=== PATIENT | male | born 1950 | race Caucasian/White ===

== ENCOUNTER 2016-07-26 14:04 | Inpatient (IN) | payer MEDICARE, OTHER ==
[~2016-07-26] VITALS: Ht 160 cm; Wt 82.9 kg
[2016-07-29] MEDS ORDERED: LISI-515 PO (09:01)
[2016-07-29] MEDS ORDERED: DOXA4TAB3 PO (09:01)
[2016-07-29] MEDS ORDERED: HYDR50TA3 PO (09:01)
[2016-07-29] MEDS ORDERED: METF500T PO (09:01)
[2016-07-29] MEDS ORDERED: GLYB2.5T3 PO (09:02)
[2016-07-29] MEDS ORDERED: CALC1CHW35 CHEW (09:27)
--- NOTE | 2016-08-08 09:19 | MH ---
cc: YISEL GARNER M.D. 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 HISTORY OF PRESENT ILLNESS The patient is a 65-year-old white male who has experienced pain of the right hip area of almost 1 year duration. He had undergone previous office evaluation with the undersigned physician in November of this past year, at which time he was describing the onset of generalized pain about his right hip unrelated to injury or unusual activity. He had undergone previous evaluation with his primary care physician at which time x-ray studies of the right hip reported findings that were thought to be consistent with avascular necrosis of the right femoral head and possible subchondral fracture. 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 The patient reported that in his past he had been a heavy ethanol consumer many years ago but for the past 30 years he had refrained from any excessive alcohol intake. He otherwise described no precipitating factors that might be associated with an avascular condition. There was no history of steroid use, no exposure to increased atmospheric pressure, no known blood dyscrasia and no prior history of trauma involving the hip area. He did report that in approximately 1996 he was diagnosed as having subdural hematomas secondary to blunt trauma that did require two operative procedures. At the time of his office evaluation his findings did demonstrate some cortical irregularity about the femoral head with increased density that was thought to be consistent with avascular necrosis. Findings and treatment options were reviewed with the patient at that time. It was noted that it was anticipated that at some point in his future he might require operative intervention in the form of total hip arthroplasty with emphasis being made that the timing of the surgery would be left entirely to the patient's discretion. Initially the patient did not feel that he was ready to proceed with such treatment and elected to continue with conservative management taking Tylenol on an as-needed basis. With the passage of time he became increasingly more symptomatic with pain that began to interfere with all ambulatory activities. He returned to the office in the more recent past reporting that he was having ongoing pain especially involving the right hip area. His more current x-ray studies did demonstrate obvious irregularity involving the femoral head with what appeared to be centralized collapse involving a localized segment of the articular surface of the femoral head superiorly. Findings and treatment options were reviewed again with emphasis being made that operative treatment would be left entirely to the patient's discretion. He readily admitted that he felt his symptoms had progressed to a point in time where he was eager to pursue such treatment and in compliance with his wishes he is currently being admitted in order that the above be accomplished. PAST MEDICAL HISTORY His past medical history, hospitalizations and surgeries in addition to: 1. Two operative procedures of the head area for history of subdural hematoma. 2. Anterior cervical diskectomy and fusion. 3. At least three operative procedures of the left shoulder for history of rotator cuff problems with complication including a postoperative staph infection. 4. He has undergone previous radiation therapy for prostate cancer with radium seed implants. 5. Laparoscopic cholecystectomy. 6. Bilateral cataract excision with intraocular lens implants. 7. Colonoscopy. MEDICAL ILLNESSES The patient's medical illnesses include: 1. Hypertension. 2. Type 2 diabetes for which he conforms to a monitored diet. MEDICATIONS Current medications: 1. Lisinopril 20 mg one tablet three times daily. 2. Hydrochloride 50 mg daily. 3. Doxazosin 4 mg daily. 4. Metformin 500 mg daily. 5. Glyburide 2.5 mg at dinner time. ALLERGIES The patient describes a drug allergy to CORTISONE WHICH HAS BEEN ASSOCIATED WITH HYPOTENSION AND SYNCOPE. REVIEW OF SYSTEMS He does wear glasses. Denies headache, seizure or syncope. He has sinus congestion related to environmental irritants. No epistaxis. Diminished auditory acuity. No tinnitus. No bleeding gums or dysphagia. Complete dentures. Denies cough, shortness of breath, upper respiratory infection, pneumonia or tuberculosis. No angina or heart disease. He is medically managed for hypertension. His appetite is good. Bowel movements are regular. No hepatitis, ulcers or hemorrhoids. No urinary tract infection. There is a positive history of kidney stones. No prostate disease. Fracture of the left tibia treated by cast immobilization, previous psychiatric evaluation for depression following his history of head trauma and subsequent surgery. His remaining review of systems is unremarkable and noncontributory. FAMILY HISTORY The patient has been approximately 26 years. His is 58 years of age. She is status post laryngectomy as well as total knee arthroplasty. No children. Family history is positive for hypertension, diabetes, heart disease, lung disease, liver disease and kidney disease. 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 He completed a high school education with additional college credits. He admits to greater than a 50-year use of tobacco at its peak being at least two packs per day and more recently limited to only several cigarettes daily. He denies any appreciable ethanol consumption at this time having been a heavy drinker in the past. PHYSICAL EXAMINATION Height 5 feet 3 inches, weight 181 pounds. GENERAL: An alert, oriented and responsive 65-year-old white male who sits quietly upon the examination table with no obvious distress. HEENT: Pupils are equally round and reactive to light. Extraocular movements full. Sclerae clear. External nares clear. External auditory canals clear. He is edentulous in both the maxillary and mandibular distribution. Mucous membranes pink and moist. Pharynx clear. NECK: Supple. Active range of motion without significant pain. Carotid pulse palpable bilaterally. Trachea midline. Thyroid without enlargement. LUNGS: Clear to auscultation and percussion. No CVA tenderness. No discomfort throughout the dorsolumbar spine. HEART: Regular irregular rhythm without murmur or gallop. ABDOMEN: Soft, nontender. Bowel sounds present. RECTAL: Per primary care physician. EXTREMITIES: Right hip no localizing tenderness to palpation. There is restricted mobility of the hip joint being most pronounced with internal and external rotation and pain at the extremes of motion. No sensation of crepitation or instability. Straight-leg raising is negative at 80 degrees. Shaun sign is positive. Distal sensory grossly intact. Independent gait. NEUROLOGIC: Cranial nerves II-XII grossly intact. IMPRESSION Aseptic necrosis right femoral head, pain right hip. PLAN Right total hip arthroplasty. The nature of the planned surgical procedure, the potential complications and risks associated, the expectations of surgery and the consent form were thoroughly reviewed with the patient in the presence of his prior to admission to the hospital. Young has indicated his full understanding regarding all of the above and given consent to proceed with treatment as outlined. Medical evaluation and clearance for surgery will be completed by his primary care physician Dr. Agnel Spencer, cardiology clearance per Dr. Muñoz. Yisel Garnre MD NBS/TLL /11:43 AM 9:10 AM
[2016-08-14] MEDS ORDERED: INSULIN HUMAN REGULAR 1,000 UNITS/10 ML VIAL SQ PRN (06:00)
[2016-08-14] MEDS ORDERED: ceFAZolin 2 GM PREMIX 50 ML IV SCH (06:00)
[2016-08-14] MEDS: POVIDONE IODINE 7.5% SCRUB 118 ML BOTTLE TOP SCH (06:00)
[2016-08-14] MEDS ORDERED: METOPROLOL TARTRATE 25 MG TAB PO PRN (06:00)
[2016-08-14] MEDS: LACTATED RINGER'S 1000 ML IV SCH (06:15)
[2016-08-14] MEDS: TRANEXAMIC ACID 1 GM PRIOR TO PROCEDURE IV SCH ×4 (06:25→09:25)
[2016-08-14 06:36] VITALS: BP 154/79; PULSE 61; RESP 16; TEMP 99.1; O2SAT 96
[2016-08-14] MEDS ORDERED: MIDAZOLAM HCL 2 MG/2 ML VIAL ONE (07:05)
[2016-08-14] MEDS ORDERED: DEXAMETHASONE SOD PHOS 4 MG/ML VIAL ONE (07:05)
[2016-08-14] MEDS ORDERED: GENTAMICIN SULFATE 80 MG/2 ML VIAL ONE (07:06)
[2016-08-14] MEDS: SODIUM CHLORID 0.9% 500 ML IV SCH ×2 (07:30→23:49)
[2016-08-14] MEDS ORDERED: ACETAMINOPHEN 1000 MG/100 ML VIAL IV ONE (08:35)
[2016-08-14] MEDS ORDERED: fentaNYL CITRATE 250 MCG/5 ML AMP ONE ×2 (08:36→09:51)
[2016-08-14] MEDS ORDERED: MISCELLANEOUS PHARMACY INFORMATION XX ONE (10:00)
[2016-08-14] MEDS ORDERED: ACETAMINOPHEN/HYDROcodone 325 MG/5 MG TAB PO PRN (10:00)
[2016-08-14] MEDS ORDERED: ACETAMINOPHEN 325 MG TAB PO PRN (10:00)
[2016-08-14] MEDS ORDERED: SODIUM CHLORIDE 0.9% FLUSH 5 ML FLUSH IVF PRN (10:00)
[2016-08-14] MEDS ORDERED: ZOLPIDEM TARTRATE 5 MG TAB PO PRN (10:00)
[2016-08-14] MEDS ORDERED: TRANEXAMIC ACID INJ 1,000 MG in SODIUM CHLORIDE 0.9% INJ 100 ML IV SCH (10:00)
[2016-08-14] MEDS ORDERED: MORPHINE SULFATE 30 MG/30 ML PCA IV SCH (10:00)
[2016-08-14] MEDS ORDERED: NALOXONE HCL 0.4 MG/ML AMP IV PRN (10:00)
[2016-08-14] MEDS ORDERED: PROMETHAZINE INJ 25 MG/ML VIAL IM PRN (10:00)
[2016-08-14] MEDS ORDERED: DOCUSATE SODIUM 100 MG CAP PO PRN (10:00)
[2016-08-14] MEDS ORDERED: ALUMINUM/MAGNESIUM/SIMETH 30 ML CUP PO PRN (10:00)
[2016-08-14] MEDS ORDERED: MAGNESIUM HYDROXIDE SUSP 30 ML CUP PO PRN (10:00)
[2016-08-14] MEDS ORDERED: diphenhydrAMINE HCL 25 MG CAP PO PRN (10:00)
[2016-08-14] MEDS ORDERED: Post-op Orders (for Pharmacy) MISC XX ONE (10:00)
[2016-08-14] MEDS ORDERED: BISACODYL 10 MG SUPP PR PRN (10:00)
[2016-08-14] MEDS ORDERED: TRANEXAMIC ACID 1 GM POST-OP IV SCH ×2 (10:30)
[2016-08-14] MEDS: DEXT 5%-NACL 0.45% 1000 ML INJ 1,000 ML IV SCH ×2 (10:30→17:48)
--- NOTE | 2016-08-14 10:40 | RADRPT ---
EXAM DATE/TIME: 08/14/2016 10:10 [facility] COMPARISON: No previous studies available for comparison. INDICATIONS : Post op right hip surgery. MEDICAL HISTORY : None. SURGICAL HISTORY : None. ENCOUNTER: Initial ACUITY: 1 day PAIN SCORE: 0/10 LOCATION: Right hip. FINDINGS: A single AP view of the right hip was obtained and demonstrates that the patient is status post arthr oplasty. The femoral and acetabular components are intact and in normal alignment. There is an adjace nt surgical drain and overlying soft tissue swelling. CONCLUSION: Expected postoperative change status post right hip arthroplasty. Bhanu Palumbo MD on August 14, 2016 at 10:36 Board Certified Radiologist. This report was verified electronically.
[2016-08-14 11:55] VITALS: BP 135/78; PULSE 74; RESP 20; TEMP 97.2; O2SAT 95
[2016-08-14] MEDS ORDERED: ePHEDrine/NS 25 MG/5 ML SYR IV ONE (12:00)
[2016-08-14] MEDS ORDERED: NEOSTIGMINE 3 MG/3 ML SYR IV ONE (12:00)
[2016-08-14] MEDS ORDERED: LACTATED RINGER'S 1000 ML INJ 1,000 ML IV ONE (12:00)
[2016-08-14] MEDS ORDERED: PROPOFOL 200 MG/20 ML AMP IV ONE (12:00)
[2016-08-14] MEDS ORDERED: PHENYLEPH/NS 1000 MCG/10 ML SYR IV ONE (12:00)
[2016-08-14] MEDS ORDERED: ONDANSETRON HCL 4 MG/2 ML VIAL IV PUSH ONE (12:00)
[2016-08-14] MEDS: PCA - TOTAL MG MORPHINE DELIVERED PER SHIFT SCH ×2 (14:00→21:53)
[2016-08-14] MEDS ORDERED: GLUCAGON 1 MG/ML VIAL OTHER PRN (15:15)
[2016-08-14] MEDS ORDERED: DEXTROSE 50% IN WATER 50 ML VIAL(D50) IV PUSH PRN (15:15)
[2016-08-14 15:41] VITALS: BP 109/60; PULSE 86; RESP 18; TEMP 97.5; O2SAT 97
[2016-08-14] MEDS: glyBURIDE 2.5 MG TAB PO SCH (16:22)
[2016-08-14 17:03] VITALS: O2SAT 93
[2016-08-14 19:17] VITALS: BP 120/67; PULSE 88; RESP 18; TEMP 97.5; O2SAT 97
[2016-08-14] MEDS: SODIUM CHLORIDE 0.9% FLUSH 5 ML FLUSH IVF SCH (21:00)
[2016-08-14] MEDS: DOXAZOSIN MESYLATE 4 MG TAB PO SCH (21:53)
[2016-08-14] MEDS: LISINOPRIL 20 MG TAB PO SCH (21:53)
[2016-08-15] VITALS (8 sets, daily range): BP systolic 111–135; BP diastolic 55–83; PULSE 70–98; RESP 18–20; TEMP 97.7–101.4; O2SAT 95–98
[2016-08-15 05:12] LABS: AUTOMATED NEUTROPHIL # 6.2 TH/MM3 (1.8-7.7); BASOPHIL % 0.1 % (0.0-2.0); EOSINOPHIL % 0.4 % (0.0-4.0); HEMATOCRIT 32.1 % (39.0-51.0); HEMO FLAGS DIFF FINAL; LYMPH % 13.2 % (9.0-44.0); MEAN CELL VOLUME 87.7 FL (80.0-100.0); MEAN CORPUSCULAR HGB CONC 35.3 % (32.0-36.0); MONO % 8.7 % (0.0-8.0); NEUT % 77.6 % (16.0-70.0); PLATELET COUNT 148 TH/MM3 (150-450); RED BLOOD COUNT 3.66 MIL/MM3 (4.50-5.90); RED CELL DISTRIBUTION WIDTH 13.1 % (11.6-17.2)
[2016-08-15 05:36] LABS: BICARBONATE 29.7 MEQ/L (21.0-32.0); POTASSIUM 3.6 MEQ/L (3.5-5.1)
[2016-08-15] MEDS: DEXT 5%-NACL 0.45% 1000 ML INJ 1,000 ML IV SCH ×3 (05:48→16:45)
[2016-08-15] MEDS: POVIDONE IODINE 7.5% SCRUB 118 ML BOTTLE TOP SCH (05:54)
[2016-08-15] MEDS: PCA - TOTAL MG MORPHINE DELIVERED PER SHIFT SCH ×3 (05:54→22:00)
[2016-08-15] MEDS ORDERED: ASPI325T PO (06:36)
[2016-08-15] MEDS ORDERED: HYDR-3516 PO (06:36)
--- NOTE | 2016-08-15 06:39 | HHI.FF ---
Face to Face Verification Diagnosis: (1) Degenerative joint disease (DJD) of hip Physical Therapy Gait training Hip: Total hip, Protocol: Right, Abduction pillow while in bed Right LE Weight Bearing: WB as tolerated Right LE Range of Motion: Active ROM Nursing Dressing Changes: Daily dressing change I have seen patient Young Saeed on 08/15/16. My clinical findings support the need for the requested home health care services because: Limited ability to care for self High risk of falls I certify that my clinical findings support that this patient is homebound because: Post-op weakness Unsteady gait/balance Unsafe to leave home unassisted Govind Garner MD Aug 15, 2016 06:39
[2016-08-15] MEDS ORDERED: BEDSIDE COMMODE1 MI1 (06:41)
[2016-08-15] MEDS ORDERED: WALKER WHEELS/F1 MIS (06:41)
[2016-08-15] MEDS: LACTATED RINGER'S 1000 ML IV SCH (07:30)
--- NOTE | 2016-08-15 08:22 | MB ---
cc: BURT SHULTZ DATE OF CONSULTATION: 08/14/2016 REASON FOR CONSULTATION: Medical management of comorbidities. 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 HISTORY OF PRESENT ILLNESS: This is a pleasant 65 year-old white male who has been in his usual state of health up until the past year. He has had right hip pain which has waxed and waned and has been followed per his ortho doctor, Dr. Garner, for outpatient treatment regimen. Currently conservative management and treatment options have not been successful so the patient has decided to have a right hip arthroplasty. The patient has multiple medical comorbidities which also include his diabetes, hypertension, degenerative disc disease, prostate cancer and other things. He also has a history of heavy alcohol intake but now only has a very occasional social drink, the last one being New 's Anuradha, one glass of champagne. Currently the patient is status post right hip arthroplasty today and we have been consulted for medical management. PAST MEDICAL HISTORY: 1. Hypertension. 2. Type 2 diabetes. 3. Cataracts 4. Gallbladder disease 5. Degenerative disc disease 6. History of subdural hematoma. 7. Rotator cuff problems. 8. Seasonal allergies. 9. Tobacco use. PAST SURGICAL HISTORY: 1. Subdural hematoma 2. Procedures x2. Cervical diskectomy and fusion. 3. Operative procedures for rotator cuff. 4. Radiation therapy for prostate cancer. 5. Cholecystectomy. 6. Bilateral cataract surgery. 7. Colonoscopy Some of this information is being gathered from the record. ALLERGIES: ASPIRIN CORTISONE SOCIAL HISTORY: The patient has been a current tobacco user, two packs a day since the age of 13. He does state he has not smoked any cigarettes in the past three days and is going to attempt to quit. ETOH, occasional social use only. Previous heavy ETOH many years ago. He is . Lives at home with his . He is retired. FAMILY HISTORY: Positive for hypertension, heart disease, diabetes, kidney disease, liver disease and lung disease. REVIEW OF SYSTEMS: A 12 point review was done, positives noted. Mild obesity. Generalized weakness, mild. He is postop right hip arthroplasty 08/14/2016. Any other systems are unremarkable or negative. PHYSICAL EXAMINATION: VITAL SIGNS: Temperature is 97.2, pulse 74, respiratory rate 20, blood pressure 135/78, O2 sat 95 on room air. GENERAL: The patient is a 65 year-old obese male, appears to be his stated age, resting in the chair in no acute distress. HEENT: Normocephalic, atraumatic. PERRLA 3. No scleral icterus. No drainage. Nares and oral cavity are pink, moist and clear. NECK: Supple. Trachea midline. HEART: Regular rhythm with some irregularity. No murmurs, rubs, or gallops appreciated. No edema. Pulses intact. LUNGS: Essentially clear to auscultation anteriorly and posteriorly with no rales, rhonchi or wheezing. ABDOMEN: Obese, soft, nontender. Active bowel sounds in all four quads. EXTREMITIES: He can move his extremities with purpose. He does have some guarding of the right hip which is status post surgery today. 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 NEUROLOGIC: He is alert, oriented, a good historian. Cranial nerves intact. Speech is clear. PSYCHIATRIC: Appropriate mood and affect. DIAGNOSTIC DATA: Labs drawn on 07/29/2016, WBC 4.6, RBC 4.82, hemoglobin 14.7, hematocrit 42.2, platelet count 171, neutrophil count 73. PT/INR 1. Chemistry: Sodium 144, potassium 4, chloride 107, CO2 30.6, BUN 19, creatinine 1.24, GFR 58, random glucose 139, fasting glucose 80, calcium 9.1, lipase 36, albumin 3.8. Urine was yellow clear, pH 5.5, specific gravity 1.019, negative for protein, glucose, ketones, occult blood, nitrites and bilirubin, negative for leukocyte esterase. Hip x-ray, expected postoperative changes, status post right hip arthroplasty. ASSESSMENT AND PLAN: 1. Diabetes mellitus type 2. 2. Hypertension. 3. Degenerative disc disease. 4. History of prostate cancer 5. History of cataracts 6. Status post right hip arthroplasty. The plan is for medical management. Monitor vital signs which includes any fever, changes in heart rate, respiratory status and/or blood pressure. The patient's meds have been reconciled. His diet will be a regular diet, he can be out of bed with assistance as per his ortho postop care, pain management per ortho for postop care, abduction splint. Will encourage his p.o. fluids, encourage hs snack at 9 o'clock for his diabetes. Will do Accu-Cheks ac and hs, sliding scale insulin, will check labs in the morning, CBC and BMP. The patient was noted to have a mild bit of dehydration versus acute kidney injury on his pre labs. We will monitor for any changes or any assessment needs in the morning after these labs are drawn. The patient is a good historian. He is full code, full aggressive care and we will follow. The patient is on Xarelto, DVT prophylaxis, he has bowel regimen meds. Dictated by: DAX Quezada Burt Shultz MD JP/DARRELL /3:29 PM /8:21 AM Pt 's ro;iuation was done on day of admission chart was reviewed in detail including meds labs and notes and rad data plan of care was estephania MORTON
[2016-08-15] MEDS: MAGNESIUM HYDROXIDE SUSP 30 ML CUP PO SCH ×2 (10:52→21:56)
[2016-08-15] MEDS: LISINOPRIL 20 MG TAB PO SCH ×2 (10:53→21:57)
[2016-08-15] MEDS: RIVAROXABAN 10 MG TAB PO SCH (10:53)
[2016-08-15] MEDS: metFORMIN HCL 500 MG TAB PO SCH (10:53)
[2016-08-15] MEDS: HYDROCHLOROTHIAZIDE 50 MG TAB PO SCH (10:53)
[2016-08-15] MEDS: SODIUM CHLORIDE 0.9% FLUSH 5 ML FLUSH IVF SCH ×2 (10:54→21:00)
--- NOTE | 2016-08-15 11:10 | HHI.PR ---
Subjective Remarks Up in chair No chest pain no shortness of breath No BM on day 2 Appetite good No dizziness Afebrile Objective Objective Results - Vital Signs Date Time Temp Pulse Resp B/P Pulse Ox O2 Delivery O2 Flow Rate FiO2 08/15/16 08:00 97.7 70 18 135/60 96 08/15/16 07:46 98 Nasal Cannula 3.00 08/15/16 04:10 98.3 72 18 120/55 96 08/15/16 00:16 97.7 79 20 128/83 96 08/14/16 20:05 Nasal Cannula 2.00 08/14/16 19:17 97.5 88 18 120/67 97 08/14/16 17:03 93 Nasal Cannula 3.00 08/14/16 15:41 97.5 86 18 109/60 97 08/14/16 14:00 18 08/14/16 11:55 97.2 74 20 135/78 95 08/14/16 11:20 97.8 98 15 145/76 98 Nasal Cannula 2 08/14/16 11:08 15 I/O 08/14/16 08/14/16 08/14/16 08/15/16 08/15/16 08/15/16 07:00 15:00 23:00 07:00 15:00 23:00 Intake Total 2154 ml 1001 ml 1925 ml Output Total 1020 ml 90 ml 2020 ml Balance 1134 ml 911 ml -95 ml Intake Oral 240 ml 1400 ml IV Total 514 ml 1001 ml 525 ml Other 1400 ml Output Urine Total 500 ml 2000 ml Drainage Total 20 ml 90 ml 20 ml Estimated Blood Loss 500 ml # Voids 0 # Bowel Movements 0 0 Result Diagram: 08/15/16 0429 08/15/16 0429 Other Results Last Impressions Hip X-Ray 08/14/16 0948 Signed Impressions: Service Date/Time: Sunday, August 14, 2016 10:10 - CONCLUSION: Expected postoperative change status post right hip arthroplasty. Bhanu Palumbo MD Medications and IVs Active Medications Cefazolin Sodium/ Sodium Chloride (Ancef Inj/NS Inj) 100 ml @ 200 mls/hr Q6H IV Last administered on 08/14/16t 23:49; Admin Dose 200 MLS/HR; Start 08/14/16 at 12:00; Stop 08/15/16 at 00:29; Status DC Dextrose (D50w (Vial) Inj) 25 ml UNSCH PRN IV PUSH; Start 08/14/16 at 15:15 Doxazosin Mesylate (Cardura) 4 mg HS PO Last administered on 08/14/16 21:53; Admin Dose 4 MG; Start 08/14/16 at 21:00 Glucagon (Glucagon Inj) 1 mg UNSCH PRN OTHER; Start 08/14/16 at 15:15 Glyburide (Diabeta) 2.5 mg DAILY@1600 PO Last administered on 08/14/16 16:22; Admin Dose 2.5 MG; Start 08/14/16 at 16:00 Hydrochlorothiazide (Hydrodiuril) 50 mg DAILY PO Last administered on 08/15/16 10:53; Admin Dose 50 MG; Start 08/15/16 at 09:00 IV Flush 2 ml 2 ml BID IVF; Start 08/14/16 at 21:00 Lisinopril (Prinivil) 20 mg BID PO Last administered on 08/15/16 10:53; Admin Dose 20 MG; Start 08/14/16 at 21:00 Magnesium Hydroxide (Milk Of Magnesia Liq) 30 ml BID PO Last administered on 10:52; Admin Dose 30 ML; Start 08/15/16 at 10:30 Metformin HCl (Glucophage) 500 mg DAILY PO Last administered on 08/15/16 10:53 ; Admin Dose 500 MG; Start 08/15/16 at 09:00 INTEGRITY ASSESSOR Dosage Infused (Pha) 1 Q8HR .XX Last administered on 08/15/16 05:54; Admin Dose 1; Start 08/14/16 at 14:00; Stop 08/16/16 at 13:59 Rivaroxaban (Xarelto) 10 mg Q24H PO Last administered on 08/15/16 10:53; Admin Dose 10 MG; Start 08/15/16 at 09:00 Sennosides (Senokot) 17.2 mg HS PO; Start 08/15/16 at 21:00 ROS General: Weakness (generalized, status post right total hip replacement, no BM on day one postop, all other systems negative or unremarkable), Other (10 point ROS done. Positives noted generalized weakness. All other systems unremarkable or negative) Physical Exam Physical Exam PHYSICAL EXAMINATION GENERAL: This is a well-developed, well-nourished male who appears to be in no acute distress. He is alert and awake, up in chair. HEAD: Normocephalic without any lesion or mass noted. Facial features appear symmetric. OROPHARYNGEAL: Oropharynx without erythema or edema. NECK: Supple. No nuchal rigidity or lymphadenopathy. Trachea midline without deviation. CARDIAC: Regular rhythm, regular rate, S1 and S2 are heard. Murmur none; no gallops or rubs. LUNGS: Clear to auscultation bilaterally. No wheeze, no rhonchi or rale. No use of accessory muscles on inspiration or expiration. ABDOMEN: Soft, nontender, no organomegaly or masses. Bowel sounds are heard in all four quadrants. No rebound. No guarding. EXTREMITIES: Minimal mild edema lower extremities. Pulses equal bilateral. No cyanosis. NEUROLOGICAL: Patient mood and affect appropriate. No focal deficit SKIN:Warm and moist Objective Remarks I feel good especially when sitting up A/P Assessment and Plan 1. Left total knee arthroplasty secondary to left knee severe osteoarthritis. 2. Hypertension. 3. Status post ablation for atrial fibrillation last February, was on Pradaxa. Off Pradaxa six days prior to admission. 4. Dehydration, mild RECOMMENDATIONS 1. Postop pain management. Physical therapy, antibiotic as per Dr. Jarquin. 2. CBC, BMP in the morning. Labs stable, reviewed, no leukocytosis WBC count 8.0, hemoglobin 11.3, B UN 21. Mild dehydration noted. encouraged patient to take in by mouth fluids 3. Patient is back on his Xarelto, 08/15/16 4. Continue home medication including blood pressure medication. 5. Monitor blood pressure, normal trends, afebrile, 6. Discussed with the patient, which included bowel regimen. Monitor intake meds if needed on day 2 or 3. Patient states his routine is usually regular, and he is passing gas Plan for rehabilitation possibly Friday depending on patient's hospital course. We'll follow medical needs Discharge Planning Plan for rehabilitation Friday if not before Cinthia Yu Aug 15, 2016 11:10
--- NOTE | 2016-08-15 12:32 | MP ---
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 PROCEDURE Right total hip arthroplasty. SURGEON Yisel Garner MD ANESTHESIA General endotracheal INDICATIONS This is a 65-year-old white male with pain of the right hip of one year duration. He had undergone previous office evaluation in November of this past year at which time he was describing the onset of a generalized pain of the right hip unrelated to injury or unusual activity. He had undergone previous examination with his primary care physician with initial x-ray studies reporting findings that were thought to be consistent with avascular necrosis of the right femoral head and possible subchondral fracture. 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 The patient reported that in his past, he had been a heavy ethanol consumer many years ago, but for the past 30 years, he had refrained from any excessive alcohol intake. He otherwise described no precipitating factors that might be associated with an avascular condition. At the time of his office evaluation, findings did demonstrate a cortical irregularity about the femoral head with increased density that was thought to be consistent with avascular necrosis. Findings and treatment options were reviewed. The patient was advised at some point in the future he would probably require operative intervention in the form of total hip arthroplasty with emphasis being made that the timing of surgery will be left entirely to the patient's discretion. At that time, the patient did not feel that he was ready to proceed with such treatment and elected to continue with conservative management taking Tylenol on a p.r.n. basis. With the passage of time, he became increasingly more symptomatic with pain that began to interfere with all ambulatory activities. He returned to the office in the more recent past reporting that he was having ongoing pain about his right hip with current x-ray studies demonstrating obvious irregularity involving the femoral head with what appeared to be a centralized collapse involving a localized segment of the articular surface of the femoral head superiorly. Once again findings and treatment options were reviewed with emphasis being made that the decision to proceed with operative intervention would be left entirely to the patient's discretion. He readily admitted that he felt he had progressed to that point in time and was eager to pursue such treatment and in compliance with his wishes he was scheduled for admission in order that total hip replacement be completed. FORMAT Following the induction of satisfactory general anesthesia by endotracheal intubation as completed per the Department of Anesthesia, the patient was positioned upon the operating table in a left lateral decubitus fashion. The right hip and lower extremity proper were isolated with a U-drape thereafter being prepped with Betadine solution and draped into a sterile field in the routine manner. Prior to initiation of the actual procedure, the standard time-out protocol was completed. All parameters were appropriately addressed and confirmed by operating room personnel. A standard posterolateral approach to the hip was initiated through a sharp skin incision and developed underlying subcutaneous tissue with hemostasis maintained by electrocautery. By deepening dissection, the fascia overlying the gluteus musculature was exposed and thereafter sharply incised to the limits of the incision. The underlying gluteus fibers were divided with the Bovie on cutting current. Progressive dissection facilitated exposure of the short external rotator structures. The pyriformis tendon was utilized as an anatomical landmark and division of these structures was completed in a superior to inferior orientation and reflected medially exposing the posterior capsule. The sciatic nerve was protected. An L-shaped capsulotomy was accomplished through which a posterior dislocation of the femoral head was completed. Examination revealed obvious cortical irregularity along the articular surface that was consistent with an avascular condition. The femoral template was positioned for alignment orientation. The neck was scored and thereafter divided with power saw. The amputated segment being passed to the back table as surgical specimen. Attention was initially directed to the proximal femur. Cancellus bone was harvested. The tapered reamer was inserted for alignment orientation. Sequential rasping and broaching was accomplished from 7-10 mm with the calcar megan being utilized at the 10 mm stage. The 10 mm stem was determined to be a favorable fit. Trial component being removed, attention was redirected to the acetabulum. The labrum and reactive soft tissue were sharply excised. Progressive reaming was accomplished from 46-49 mm. The 50 mm trial shell was positioned and determined to be satisfactory. With the trial component being removed, the wound was copiously irrigated with pulsating antibiotic solution, hemostasis being maintained by electrocautery. Harvested cancellous bone was digitally impacted into the depths of the acetabulum and thereafter a 50 mm ring lock acetabular shell was firmly seated in approximately 45 degrees inclination to the horizontal and slight anteversion. A single 25 mm 6.5 cancellous screw was inserted superiorly to augment fixation. The permanent high wall acetabular liner was affixed to the acetabular shell. The canal was thereafter irrigated and dried and thus the 10 mm trial femoral broach was repositioned and a trial reduction followed utilizing a 36 mm modular head with -6 mm neck length adapter. The hip readily reduced and was carried through a passive range of motion, stability being demonstrated at 90 degrees flexion and 45 degrees internal rotation. An open dislocation was thereafter completed. The trial femoral components being removed, the canal was thoroughly irrigated and dried and thereafter the permanent size 10 Echo biometric standard femoral stem was firmly seated to which a 36 mm ceramic head with -6 mm neck length adapter was attached. An open reduction completed and repeat range of motion again noted stability as previously described. Final irrigation was accomplished with hemostasis maintained. The posterior capsule was repaired with 0 Vicryl suture. The piriformis tendon and short external rotators structures were reapproximated in a similar manner. Hemovac drain tubes were inserted through superior stab wounds. The fascia of the gluteus musculature was reapproximated with a running 0 Vicryl suture. The remaining portion of the wound was closed in layers in the routine manner, skin margins being reapproximated with a running subcuticular 3-0 Vicryl suture over which Steri-Strips were applied. Xeroform gauze and a bulky dry sterile dressing were placed. The patient was repositioned into a supine orientation when abduction splint was attached. Anesthesia was discontinued. He was thereafter transferred to a hospital bed and returned to recovery room in satisfactory condition having tolerated his operative procedure well. Estimated blood loss approximately 600 cc as determined per anesthesia. All implants were of the [employer] manufacture. MD FLORINDA Torres/CINDY /9:40 AM /12:13 PM
[2016-08-15] MEDS: glyBURIDE 2.5 MG TAB PO SCH (16:45)
[2016-08-15] MEDS: DOXAZOSIN MESYLATE 4 MG TAB PO SCH (21:57)
[2016-08-15] MEDS: SENNOSIDES 8.6 MG TAB PO SCH (21:57)
[2016-08-16] VITALS (7 sets, daily range): BP systolic 98–127; BP diastolic 55–96; PULSE 71–97; RESP 16–20; TEMP 95.6–100.4; O2SAT 94–100
[2016-08-16] MEDS: DEXT 5%-NACL 0.45% 1000 ML INJ 1,000 ML IV SCH ×3 (01:48→17:48)
[2016-08-16] MEDS: POVIDONE IODINE 7.5% SCRUB 118 ML BOTTLE TOP SCH (06:00)
[2016-08-16] MEDS: PCA - TOTAL MG MORPHINE DELIVERED PER SHIFT SCH (06:00)
[2016-08-16] MEDS ORDERED: ASPI325T PO ×2 (06:39)
[2016-08-16] MEDS: LACTATED RINGER'S 1000 ML IV SCH (07:30)
[2016-08-16] MEDS: metFORMIN HCL 500 MG TAB PO SCH (09:13)
[2016-08-16] MEDS: SODIUM CHLORIDE 0.9% FLUSH 5 ML FLUSH IVF SCH ×2 (09:13→22:06)
[2016-08-16] MEDS: HYDROCHLOROTHIAZIDE 50 MG TAB PO SCH (09:14)
[2016-08-16] MEDS: LISINOPRIL 20 MG TAB PO SCH ×2 (09:14→22:07)
[2016-08-16] MEDS: RIVAROXABAN 10 MG TAB PO SCH (09:14)
[2016-08-16] MEDS: MAGNESIUM HYDROXIDE SUSP 30 ML CUP PO SCH ×2 (09:14→21:00)
--- NOTE | 2016-08-16 10:21 | HHI.PR ---
Subjective Subjective Remarks ambulating with walker pain well controlled with pills no BM yet fever 101.4 last night, 99 today no cough, no sputum using IS no dysuria going to SNF tomorrow at [facility] Review of Systems Constitutional Constitutional Remarks 12 point review of systems completed, negative except as noted above Vitals/Results Intake & Output 08/15/16 08/15/16 08/16/16 15:00 23:00 07:00 Intake Total 720 ml 527 ml 292 ml Output Total 280 ml Balance 720 ml 247 ml 292 ml Intake Oral 720 ml 360 ml IV Total 167 ml 292 ml Output Urine Total 160 ml Drainage Total 120 ml # Voids 4 # Bowel Movements 0 Vital Signs Vital Signs Date Time Temp Pulse Resp B/P Pulse Ox O2 Delivery O2 Flow Rate FiO2 08/16/16 08:00 98.6 71 20 123/96 96 08/16/16 04:00 95.6 86 16 109/55 99 08/16/16 00:00 95.6 85 18 127/62 100 08/15/16 20:00 101.4 74 18 125/74 96 08/15/16 20:00 101.4 74 18 125/79 96 08/15/16 19:35 Room Air 08/15/16 16:15 100.7 98 18 130/65 97 08/15/16 13:41 18 08/15/16 12:00 100.0 85 18 111/61 95 08/15/16 11:56 97 Nasal Cannula 21 08/15/16 10:57 Room Air CBC/BMP: 08/15/16 0429 08/15/16 0429 Physical Exam General General Appearance: Well Developed, Well Nourished, No Acute Distress, Comfortable Eyes Eye Exam: Pupils Equal, Pupils Reactive Ears & Nose Ears & Nose Exam: Nasal Mucosa [place] Throat Throat Exam: Oral Mucosa [place] & Moist Neck Neck Exam: Neck Supple, Trachea Midline Pulmonary Resp Exam: Breath Sounds Equal, Crackles Cardiology CV Exam: Regular Gastrointestinal/Abdomen GI Exam: Soft, Non-Tender, Bowel Sounds Present, Non-Distended Musculoskeletal MS Remarks Right hip dressing D/I Integumentary Skin Exam: Warm, Dry Extremeties Extremities Exam: No Edema, Pedal Pulses Palpable Neurologic Neuro Exam: Alert, Awake, Oriented, Speech Clear, Moving All Extremities, Manager Mechanical Equal, No Focal Deficits Psychiatric Psych Exam: Appropriate Responses VTE Prophylaxis VTE Prophylaxis Device: SCDs VTE Remarks Xarelto Assessment/Plan Assessment/Plan 1. Left total knee arthroplasty secondary to left knee severe osteoarthritis. 2. Hypertension. 3. Status post ablation for atrial fibrillation last February, was on Pradaxa. Off Pradaxa six days prior to admission. 4. Dehydration, mild 5. DM II Plan Post op care Xarelto for DVT prophylaxis PT Wound care pain management Febrile last night Enc. IS use q 1 WA Post op anemia, HH stable Bowel regimen CM for DC planning, going to SNF tomorrow D/W RN D/W Dr. Steen D/W pt, This patient was seen by myself and Dr. Steen, this note is written on his behalf. Shameka Hopper Aug 16, 2016 10:21
[2016-08-16] MEDS: ACETAMINOPHEN/HYDROcodone 325 MG/5 MG TAB PO PRN ×2 (10:26→22:06)
[2016-08-16] MEDS: glyBURIDE 2.5 MG TAB PO SCH (16:59)
[2016-08-16] MEDS: SENNOSIDES 8.6 MG TAB PO SCH (21:00)
[2016-08-16] MEDS: DOXAZOSIN MESYLATE 4 MG TAB PO SCH (22:07)
[2016-08-17 00:18] VITALS: BP 116/52; PULSE 85; RESP 18; TEMP 99.3; O2SAT 95
[2016-08-17 05:01] VITALS: BP 132/64; PULSE 81; RESP 18; TEMP 98.2; O2SAT 95
[2016-08-17] MEDS: LACTATED RINGER'S 1000 ML IV SCH (07:30)
[2016-08-17 08:00] VITALS: BP 121/62; PULSE 79; RESP 19; TEMP 99; O2SAT 95
[2016-08-17] MEDS: SODIUM CHLORIDE 0.9% FLUSH 5 ML FLUSH IVF SCH (09:00)
[2016-08-17] MEDS: MAGNESIUM HYDROXIDE SUSP 30 ML CUP PO SCH (09:00)
--- NOTE | 2016-08-17 10:35 | HHI.PR ---
Subjective Subjective Remarks sitting up in chair minimal pain fever last night 100.4 had BM going to rehab today Review of Systems Constitutional Constitutional Remarks 12 point review of systems completed, negative except as noted above Vitals/Results Intake & Output 08/16/16 08/16/16 08/17/16 15:00 23:00 07:00 Intake Total 600 ml 650 ml Output Total 800 ml 900 ml Balance -200 ml -250 ml Intake Oral 600 ml 650 ml Output Urine Total 800 ml 900 ml # Bowel Movements 2 0 Vital Signs Vital Signs Date Time Temp Pulse Resp B/P Pulse Ox O2 Delivery O2 Flow Rate FiO2 08/17/16 08:00 99.0 79 19 121/62 95 08/17/16 05:01 98.2 81 18 132/64 95 08/17/16 00:18 99.3 85 18 116/52 95 08/16/16 20:38 100.4 96 18 98/55 95 08/16/16 19:03 94 21 08/16/16 12:28 94 21 08/16/16 12:00 100.2 97 18 105/57 96 CBC/BMP: 08/15/16 0429 08/15/16 0429 Physical Exam General General Appearance: Well Developed, Well Nourished, No Acute Distress, Comfortable Eyes Eye Exam: Pupils Equal, Pupils Reactive Ears & Nose Ears & Nose Exam: Nasal Mucosa [place] Throat Throat Exam: Oral Mucosa [place] & Moist Neck Neck Exam: Neck Supple, Trachea Midline Pulmonary Resp Exam: Breath Sounds Equal, Crackles Cardiology CV Exam: Regular Gastrointestinal/Abdomen GI Exam: Soft, Non-Tender, Bowel Sounds Present, Non-Distended Musculoskeletal MS Remarks Right hip dressing D/I Integumentary Skin Exam: Warm, Dry Extremeties Extremities Exam: No Edema, Pedal Pulses Palpable Neurologic Neuro Exam: Alert, Awake, Oriented, Speech Clear, Moving All Extremities, Clinical Exercise Specialist Equal, No Focal Deficits Psychiatric Psych Exam: Appropriate Responses VTE Prophylaxis VTE Prophylaxis Device: SCDs VTE Remarks Xarelto Assessment/Plan Assessment/Plan 1. Left total knee arthroplasty secondary to left knee severe osteoarthritis. 2. Hypertension. 3. Status post ablation for atrial fibrillation last February, was on Pradaxa. Off Pradaxa six days prior to admission. 4. Dehydration, mild 5. DM II Plan Post op care Xarelto for DVT prophylaxis PT Wound care pain management Febrile last night Enc. IS use q 1 WA Post op anemia, HH stable Bowel regimen CM for DC planning stable for discharge, to SNF today D/W RN D/W Dr. Steen D/W pt This patient was seen by myself and Dr. Steen, this note is written on his behalf. Shameka Hopper Aug 17, 2016 10:35
[2016-08-17] MEDS: metFORMIN HCL 500 MG TAB PO SCH (11:05)
[2016-08-17] MEDS: HYDROCHLOROTHIAZIDE 50 MG TAB PO SCH (11:05)
[2016-08-17] MEDS: RIVAROXABAN 10 MG TAB PO SCH (11:05)
[2016-08-17] MEDS: LISINOPRIL 20 MG TAB PO SCH (11:06)
[2016-08-17 12:00] VITALS: BP 104/60; PULSE 94; RESP 18; TEMP 99.6; O2SAT 96
[2016-08-17 16:00] VITALS: BP 122/71; PULSE 90; RESP 18; TEMP 99.6; O2SAT 98
[2016-08-17] MEDS: glyBURIDE 2.5 MG TAB PO SCH (16:45)
--- NOTE | 2016-08-18 21:27 | MD ---
cc: ANGEL SPENCER D.O.,YISEL STODDARD,ZABRINA Lamas MD ADMISSION DATE: 08/14/2016 DISCHARGE DATE: 08/17/2016 He was admitted August 14, 2016. 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 HISTORY A 65-year-old white male with pain of the right hip area of almost one year duration. He had undergone previous office evaluation in November of this past year at which time he was describing the onset of generalized pain about the hip area unrelated to injury or unusual activity. He had undergone previous evaluation with his primary care physician at which time x-ray studies of his right hip reported findings that were thought to be consistent with avascular necrosis and a possible subchondral fracture. A subsequent MRI scan reported bilaterally vascular necrosis of both femoral heads but no developing loose body being identified. The patient reported that in his past he had been a heavy ethanol consumer a number of years ago, but within the past 30 years had refrained from any excessive alcohol intake. Otherwise no precipitating factors were associated with the onset of his condition. At the time of his office evaluation x-ray findings demonstrated cortical irregularity of the femoral head with increased density that was thought to be consistent with avascular necrosis. Findings and treatment options were reviewed with the patient at that time. It was advised that he would eventually be a candidate for total hip arthroplasty but the decision to plan for surgery would be left entirely to the patient's discretion. Initially he elected to continue with conservative management taking Tylenol on an as-needed basis but became increasingly more symptomatic with pain that began to interfere with all ambulatory activities. He returned to the office in the more recent past reporting that he was having ongoing difficulty as related to his ambulation with current x-ray studies demonstrating obvious irregularity involving the femoral head with what appeared to be a centralized collapse involving the articular surface of the femoral head superiorly. Once again findings and treatment options were reviewed. The pros and cons of continuing with conservative management versus operative intervention that would involve total hip arthroplasty were outlined. The patient felt that his symptoms had progressed to point in time where he was ready to proceed accordingly and in compliance with his wishes he was scheduled for admission at this time in order that the above be accomplished. His physical examination the time admission revealed no localizing tenderness about his right hip. There was restricted mobility of the hip joint being most pronounced with internal and external rotation and pain at the extremes of motion. No sensation of crepitation or instability. Straight-leg raising negative 80 degrees. Shaun sign positive. Distal sensory grossly intact. Independent gait. HOSPITAL COURSE Prior to admission to the hospital the patient had undergone medical evaluation and clearance for surgery as completed by his primary care physician Dr. Angel Spencer, cardiology clearance per Dr. Stoddard. The patient was taken to the operating room on August 14, 2016 and on that date underwent a right total hip arthroplasty completed in an uncomplicated manner. He was noted to have tolerated his operative procedure well and his postoperative course stable thereafter. Hemoglobin/hematocrit assessment postoperatively was 11.3 and 32.1, respectively. The patient was progressively mobilized under guidance of physical therapy being permitted weightbearing to tolerance about the right lower extremity. Follow up examination of the surgical wound noted to be intact, healing favorably, no evidence of infection. Medical followup per the hospitalist service. DVT prophylaxis initiated. creative services coordinator consulted to assist with discharge planning. The patient expressed his desire for rehab placement. Plans were finalized in this regard through the assistance of the Social Service Department and pending medical clearance. He was scheduled for transfer on the third postoperative day at which time he was making favorable progress with regards to his rehab program. He was scheduled be seen in office followup in approximately 4 weeks. His condition at the time of discharge was stable. Prognosis favorable. DISCHARGE MEDICATIONS 1. Hydrocodone 5/325, #60. 2. Aspirin 325 mg one tablet twice daily for four weeks, #60. MD FLORINDA Torres/KK /6:45 AM /9:09 PM
== END 2016-08-17 17:26 | DRG 470 ==
LOC: HSDI 08-14 05:22 → N06B 08-14 11:35
PROVIDERS: ADMIT Orthopaedic Surgery; ATTEND Orthopaedic Surgery
PROC: 0SR903A Replacement of Right Hip Joint with Ceramic Synthetic Substitute, Uncemented, Open Approach (ICD-10-PCS; principal; 2016-08-14 07:13)
DX: M87.051 Idiopathic aseptic necrosis of right femur (principal); I48.91 Unspecified atrial fibrillation; I10 Essential (primary) hypertension; E11.9 Type 2 diabetes mellitus without complications; D64.9 Anemia, unspecified; E86.0 Dehydration; R50.9 Fever, unspecified; F17.210 Nicotine dependence, cigarettes, uncomplicated; Z92.3 Personal history of irradiation; Z85.46 Personal history of malignant neoplasm of prostate; Z88.6 Allergy status to analgesic agent; Z88.8 Allergy status to other drugs, medicaments and biological substances
CPT/HCPCS: 73501; 80048; 82948; 85025; 86850; 86900; 86901; 88304; 88305; 88311; 94150; C1776; J0131; J0690; J1100; J1580; J2250; J2270; J2370; J2405; J2710; J3010; J7120

== ENCOUNTER → 2016-07-29 | Outpatient (CLI) | payer MEDICARE, OTHER ==
[~2016-07-29] MED LIST: ASPI325T PO; BEDSIDE COMMODE1 MI1; CALC1CHW35 CHEW; CAPT50TA PO; CIPR250T2 PO; DOXA1 PO; DOXA4TAB3 PO; GLYB2.5T3 PO; HYDR-3516 PO; HYDR50TA3 PO; LIPI40TA PO; LISI-515 PO; LORT7.5T3 PO; METF500T PO; QUET1TAB67 PO; WALKER WHEELS/F1 MIS; [UNRECOGNIZED DRUG - CODE] OR
[2016-07-29 09:24] LABS: HEMATOCRIT 42.2 % (39.0-51.0); MEAN CELL VOLUME 87.5 FL (80.0-100.0); MEAN CORPUSCULAR HEMOGLOBIN 30.5 PG (27.0-34.0); MEAN CORPUSCULAR HGB CONC 34.8 % (32.0-36.0); PLATELET COUNT 171 TH/MM3 (150-450); RED BLOOD COUNT 4.82 MIL/MM3 (4.50-5.90); RED CELL DISTRIBUTION WIDTH 13.3 % (11.6-17.2); REVIEW FLAG FINAL; WHITE BLOOD COUNT 4.6 TH/MM3 (4.0-11.0)
[2016-07-29 09:40] LABS: PROTHROMBIN TIME - PATIENT 10.5 SEC (9.8-11.6)
[2016-07-29 09:51] LABS: BICARBONATE 30.6 MEQ/L (21.0-32.0)
--- NOTE | 2016-07-29 09:52 | RADRPT ---
EXAM DATE/TIME: 07/29/2016 09:39 [facility] COMPARISON: No previous studies available for comparison. INDICATIONS : Evaluate for pneumoia, pneumothorax or communicable disease. Pre op for total left hip. MEDICAL HISTORY : None. SURGICAL HISTORY : None. ENCOUNTER: Initial ACUITY: 1 day PAIN SCORE: 0/10 LOCATION: Bilateral chest FINDINGS: PA and lateral views of the chest demonstrate the lungs to be symmetrically aerated without evidence of mass, infiltrate or effusion. The cardiomediastinal contours are unremarkable. Osseous structure s are intact with right marginal spurring mid and lower thoracic spine and anterior cervical fusion p late in place in the cervical spine. CONCLUSION: No acute disease. Ag Martinez MD on July 29, 2016 at 9:50 Board Certified Radiologist. This report was verified electronically.
[2016-07-29 10:21] LABS: BLOOD, URINE NEG (NEG); COMMENT (UR) CULT NOT INDICATED; CULTURE IF INDICATED CULT NOT INDICATED; GLUCOSE,URINE NEG (NEG); KETONE, URINE NEG (NEG); MUCUS URINE FEW /lpf (OCC); NITRITE,URINE NEG (NEG); PH, URINE 5.5 (5.0-8.5); URINE COLOR YELLOW (YELLW/STRAW)
== END ==
LOC: CPRE 08:34
PROVIDERS: ATTEND Orthopaedic Surgery
DX: Z01.810 Encounter for preprocedural cardiovascular examination (principal); Z01.811 Encounter for preprocedural respiratory examination; Z01.812 Encounter for preprocedural laboratory examination; M87.051 Idiopathic aseptic necrosis of right femur
CPT/HCPCS: 36415; 71020; 80048; 81001; 85027; 85610

== ENCOUNTER → 2017-08-05 | Outpatient (CLI) | payer MEDICARE, OTHER ==
[~2017-08-05] MED LIST changes: +ASPI-183 PO; -ASPI325T PO; -CALC1CHW35 CHEW; -CAPT50TA PO; -CIPR250T2 PO; +DICL75TA PO; -DOXA1 PO; -LIPI40TA PO; +LISI10TA3 PO; -LORT7.5T3 PO; +MEDI220T PO; -QUET1TAB67 PO; -[UNRECOGNIZED DRUG - CODE] OR
[2017-08-05 09:58] LABS: AUTOMATED NEUTROPHIL # 2.8 TH/MM3 (1.8-7.7); BASOPHIL # 0.1 TH/MM3 (0-0.2); BASOPHIL % 1.3 % (0.0-2.0); EOSINOPHIL # 0.1 TH/MM3 (0-0.4); EOSINOPHIL % 3.3 % (0.0-4.0); HEMATOCRIT 39.1 % (39.0-51.0); HEMOGLOBIN 13.8 GM/DL (13.0-17.0); LYMPH % 22.3 % (9.0-44.0); MEAN CELL VOLUME 89.5 FL (80.0-100.0); MEAN CORPUSCULAR HEMOGLOBIN 31.7 PG (27.0-34.0); MEAN CORPUSCULAR HGB CONC 35.4 % (32.0-36.0); MEAN PLATELET VOLUME 8.1 FL (7.0-11.0); MONO % 9.5 % (0.0-8.0); MONOCYTE # 0.4 TH/MM3 (0-0.9); NEUT % 63.6 % (16.0-70.0); PLATELET COUNT 161 TH/MM3 (150-450); RED BLOOD COUNT 4.36 MIL/MM3 (4.50-5.90); RED CELL DISTRIBUTION WIDTH 13.5 % (11.6-17.2); WHITE BLOOD COUNT 4.5 TH/MM3 (4.0-11.0)
[2017-08-05 10:02] LABS: BILIRUBIN, URINE NEG (NEG); BLOOD, URINE NEG (NEG); GLUCOSE,URINE NEG (NEG); HYALINE CAST, URINE 1 /lpf (RARE); KETONE, URINE NEG (NEG); MUCUS URINE FEW /lpf (OCC); NITRITE,URINE NEG (NEG); SQUAMOUS EPITHELIAL CELL URINE <1 /hpf (0-5); URINE COLOR YELLOW (YELLW/STRAW); URINE LEUKOCYTE ESTERASE NEG (NEG)
[2017-08-05 10:09] LABS: PROTHROMBIN TIME - PATIENT 10.3 SEC (9.8-11.6)
--- NOTE | 2017-08-05 10:26 | RADRPT ---
EXAM DATE/TIME: 08/05/2017 10:16 [facility] COMPARISON: CHEST PA & LAT, July 29, 2016, 9:39. INDICATIONS : Evaluate for pneumonia, pneumothorax, or communicable disease. Pre-op right knee arthroscopy. MEDICAL HISTORY : Hypertension. Diabetes mellitus type II. SURGICAL HISTORY : None. ENCOUNTER: Initial ACUITY: 1 day PAIN SCORE: 0/10 LOCATION: Bilateral chest FINDINGS: There is stable mild as lower pleuroparenchymal scarring. No evidence of confluent infiltrate or pleu ral effusion. Cardiac contours are stable. There are degenerative changes in the thoracic spine. Prev ious cervical hardware fusion. CONCLUSION: Stable chest with no definite acute disease. Sami Clark MD on August 05, 2017 at 10:24 Board Certified Radiologist. This report was verified electronically.
[2017-08-05 10:27] LABS: CREATININE 1.44 MG/DL (0.60-1.30)
== END ==
LOC: CPRE 09:14
PROVIDERS: ATTEND Orthopaedic Surgery
DX: Z01.812 Encounter for preprocedural laboratory examination (principal); Z01.811 Encounter for preprocedural respiratory examination; S72.13 Apophyseal fracture of femur; S83.281D Other tear of lateral meniscus, current injury, right knee, subsequent encounter; S83.241D Other tear of medial meniscus, current injury, right knee, subsequent encounter
CPT/HCPCS: 36415; 71046; 80048; 81001; 85025; 85610

== ENCOUNTER → 2017-08-15 | Day surgery (SDC) | payer MEDICARE, OTHER ==
--- NOTE | 2017-08-11 17:53 | MH ---
cc: YISEL GARNER M.D. DATE OF ADMISSION 08/15/2017 ADMISSION DIAGNOSIS Insufficiency fracture lateral femoral condyle right knee, medial and lateral meniscus tear right knee, chondromalacia patellae right knee, effusion right knee, pain right knee. HISTORY OF THE PRESENT ILLNESS The patient is a 66-year-old white male who has experienced a 5-month history of pain involving his right knee. He had noted the gradual onset of soreness generalized about the anterior aspect of his knee unrelated to injury or unusual activity. He had remained ambulatory during this interval of time but did experience an occasional giving-way sensation for which he had fallen on several occasions during the previous year. He was taking Tylenol for pain relief with minimal benefit being noted and wearing elastic knee support. He presented to the undersigned physician in March of this past year and at that time his initial x-ray studies were without evidence of any acute bony abnormality. The patient was diagnosed as having a transient synovitis for which he was prescribed diclofenac 75 mg twice daily and thereafter followed on an outpatient basis. He did later experience a giving way sensation that had spontaneously occurred but he did not actually fall at that time. He had some hydrocodone available at home that he was taking for pain management. He returned to the office and at that time declined an offer for a steroid injection indicating that he was unable to tolerate cortisone. He tried to conform to conservative management at home but unfortunately noted lingering symptoms for which he later underwent an MRI scan the results of which identified a subchondral fracture involving the lateral femoral condyle that was thought to be in insufficiency type injury. There were tears involving the body of the lateral meniscus and the anterior horn of the medial meniscus associated with a joint effusion and chondromalacia patellae. The patient noted lingering soreness about his right knee with an intermittent giving-way sensation for which she was utilizing an orthotic [id number] support and a cane as an ambulatory aid. He returned to the office to review the findings of his scan and at that time the pros and cons of continuing with conservative management versus operative intervention that would involve arthroscopic surgery were outlined in detail. Emphasis was made regarding the fact that the decision to proceed with surgery would be left entirely to the patient's discretion. The patient considered his options in this regard and returned to the office indicating that because of ongoing symptoms as described above and the associated limitations regarding his daily routine he was ready to proceed with surgery as discussed. In compliance with his wishes he has been scheduled for admission at this time in order that the above be accomplished. PAST MEDICAL HISTORY His past medical history, hospitalizations and surgeries have included: 1. 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 2. He has had drainage of subdural hematomas time two. 3. Anterior cervical diskectomy with fusion. 4. Three operative procedures of the left shoulder for rotator cuff problems with postoperative staph infection being noted. 5. Radiation therapy for prostate cancer and radium seed implants. 6. Laparoscopic cholecystectomy. 7. Bilateral cataract excisions with intraocular lens implants. 8. And colonoscopy. The patient's medical illnesses include: 1. Hypertension. 2. Type 2 diabetes. MEDICATIONS His current medications: 1. Hydrochloride 50 mg daily. 2. Lisinopril 10 mg three times daily. 3. Metformin 500 mg daily. 4. Doxazosin 4 mg daily. 5. Diclofenac 75 mg twice daily. 6. Glyburide 2.5 mg daily. The patient does not conform to any particular dietary restrictions with regards to his diabetes. ALLERGIES HE DESCRIBES A DRUG ALLERGY TO CORTISONE WHICH HAS BEEN ASSOCIATED WITH HYPOTENSION AND SYNCOPE. REVIEW OF SYSTEMS He does wear glasses. No headache, seizure or syncope. Occasional sinus congestion as related to environmental agents. No epistaxis. Diminished auditory acuity. No tinnitus. No bleeding gums or dysphagia. Edentulous. Denies cough, shortness of breath, upper respiratory infection, pneumonia or tuberculosis. No angina or heart disease. He is medically managed for hypertension. Appetite good, bowel movements regular. No hepatitis, ulcers or hemorrhoids. No gallbladder disease. No urinary tract infection. He has had a history of kidney stones. No prostate disease. Fracture of the left tibia treated nonoperatively and previous psychiatric evaluation for depression following history of head trauma and subsequent surgery. Remaining review of systems is unremarkable and noncontributory. FAMILY HISTORY 27 years, 57 years of age. She is status post laryngectomy and total knee arthroplasty. No children. Family history is positive for hypertension, diabetes, heart disease, lung disease, liver disease and kidney disease. 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 He completed a high school education with additional college credits. Admits to greater than a 50 pack-year use of tobacco upwards to two packs per day but more recently limited to only several cigarettes daily. He denies any appreciable ethanol consumption but was a heavy drinker in years past. PHYSICAL EXAMINATION VITAL SIGNS: Height 5 feet 3 inches, weight 192 pounds. GENERAL: An alert, oriented responsive 66-year-old white male who sits quietly upon examination table with no apparent distress. HEENT: Head, ears, eyes, nose and throat, pupils are equally round and reactive to light. Extraocular movements full. Sclerae clear. External nares clear. External auditory canals clear. Edentulous. Mucous membranes pink and moist. Pharynx clear. NECK: Supple. Active range of motion without appreciable pain. Carotid pulse palpable bilaterally. Trachea midline. Thyroid without enlargement. LUNGS: Clear to auscultation and percussion. No CVA tenderness. No discomfort throughout the dorsal lumbar spine. HEART: Regular rhythm. No murmur or gallop. ABDOMEN: Soft, nontender. Bowel sounds present. RECTAL: Per primary care physician. EXTREMITIES: Right knee no appreciable swelling or suggestion for intra-articular effusion. There is tenderness about the anterior aspect of the knee without palpable deformity. Limited mobility in the 110 degrees range of flexion with pain at the extreme of motion. No crepitation. No collateral ligamentous laxity. Emely test and drawer sign negative. Pivot shift and Bernice sign positive for medial and lateral compartment pain. Straight-leg raising unremarkable at 80 degrees. Distal sensory grossly intact. Mild antalgic gait with cane support. NEUROLOGIC: Cranial nerves II-XII grossly intact. IMPRESSION Insufficiency fracture lateral femoral condyle right knee, medial and lateral meniscus tear right knee, chondromalacia patellae right knee, effusion right knee, pain right knee. PLAN Arthroscopic surgery right knee. The nature of the planned surgical procedure, the potential complications and risks associated, the expectations of surgery and the consent form were thoroughly reviewed with the patient in the presence of his prior to admission to the hospital. Young has indicated his full understanding regarding all of the above and given consent to proceed with treatment as outlined. Medical evaluation and clearance for surgery will be completed by his primary care physician Dr. Angel Spencer. Yisel Garner MD NBS/KK /5:09 PM /5:29 PM
[~2017-08-15] VITALS: Ht 160 cm; Wt 84.9 kg
[~2017-08-15] MED LIST changes: +*RESP: ALBUTEROL 2.5 MG/3 ML NEB (PRN) PERIprocedural Use ONLY NEB ONE; +ACETAMINOPHEN/HYDROcodone 325 MG/5 MG TAB PO PRN; -ASPI-183 PO; -BEDSIDE COMMODE1 MI1; +CHLORHEXIDINE GLUCONATE 2 % 1 PACK (2 CLOTHS) TOPICAL PRN; +DO NOT ADM ANY ANTICOAGULANT DRUGS PRN; -HYDR-3516 PO; +LACTATED RINGER'S 1000 ML IV PRN; +LIDOCAINE HCL 1% PF 5 ML SYRINGE OTHER ONE; -LISI-515 PO; +METOPROLOL TARTRATE 25 MG TAB PO PRN; +MIDAZOLAM HCL 2 MG/2 ML VIAL ONE; +MORPHINE SULFATE 8 MG/ML INJ IM PRN; +ONDANSETRON HCL 4 MG/2 ML VIAL IV ONE; +PHENYLEPH/NS 1000 MCG/10 ML SYR IV ONE; +POVIDONE IODINE 5% (ANTISEPSIS KIT) 4 APPLICATIONS EACH NARE PRN; +POVIDONE IODINE 7.5% SCRUB 118 ML BOTTLE TOPICAL SCH; +PROMETHAZINE INJ 25 MG/ML VIAL IM PRN; +PROPOFOL 200 MG/20 ML AMP IV ONE; +SODIUM CHLORID 0.9% 500 ML IV PRN; -WALKER WHEELS/F1 MIS; +ceFAZolin 2 GM PREMIX 50 ML IV SCH; +ePHEDrine/NS 25 MG/5 ML SYRINGE IV ONE
[2017-08-15 11:00] VITALS: BP 165/78; PULSE 75; RESP 18; TEMP 97.9; O2SAT 97
--- NOTE | 2017-08-16 21:34 | MP ---
cc: YISEL GARNER DATE OF SURGERY 08/15/17 PREOPERATIVE DIAGNOSIS 1. Insufficiency fracture lateral femoral condyle right knee 2. Medial and lateral meniscus tear right knee 3. Chondromalacia patellae right knee 4. Effusion right knee 5. Pain of the right knee. POSTOPERATIVE DIAGNOSIS 1. Insufficiency fracture lateral femoral condyle right knee 2. Medial and lateral meniscus tear right knee 3. Chondromalacia patellae right knee 4. Effusion right knee 5. Pain of the right knee. 6. Synovial plica right knee PROCEDURE 1. Partial medial and lateral meniscectomy right knee 2. Resection of synovial plica. SURGEON Shawn Garner MD ANESTHESIA General by LMA FORMAT Following the induction of satisfactory general anesthesia by LMA insertion as completed per the Department of Anesthesia, examination of the right knee revealed a satisfactory range of motion with no appreciable ligamentous instability. The extremity proper was positioned in the surgical garment inspector knee pina, prepped with Betadine solution and draped into a sterile field in the routine manner. Prior to initiation of the actual procedure, the standard time-out protocol was completed, all parameters were appropriately addressed and confirmed by operating room personnel. Arthroscopic instrumentation was introduced through stab wound utilizing cannula with sharp and blunt trocar, the inflow irrigation by way of a medial suprapatellar portal, the arthroscope through a lateral parapatellar portal and a probe through a medial parapatellar portal. Examination of the suprapatellar pouch did reveal a prominent synovial plica extending from medial to lateral orientation. Mild to moderate degenerative changes were appreciated about the patellofemoral joint consistent with localized chondromalacia. Within the medial compartment, a degenerative tear involving the body and posterior horn of the medial meniscus was identified. There was some attenuation of the anterior cruciate ligament with proliferative synovium extending into the intercondylar region. In the lateral compartment, a more significant degenerative almost complex tear of the lateral meniscus was noted. Utilizing a 3.8 aggressive resector, attention was initially oriented towards the lateral compartment where a partial lateral meniscectomy was accomplished as well as debridement of the articular surface. Proliferative synovium was removed from the intercondylar region and thereafter a partial medial meniscectomy was accomplished as well as debridement of the medial femoral condyle. The shaver was thereafter oriented into the suprapatellar region where the previously identified synovial plica was resected in a subtotal manner and thereafter debridement of the patellofemoral joint. Upon completion of same, the joint space was thoroughly lavaged and suctioned dry. Portal sites were reapproximated with Steri-Strips over which Xeroform gauze and a bulky dry sterile dressing placed. Anesthesia was discontinued and the patient thus transferred to a hospital stretcher and returned to the recovery room in satisfactory condition having tolerated his operative procedure well. Estimated blood loss approximately 10 mL. MD FLORINDA Torres/SA /9:40 AM /9:24 PM
== END | disposition home or self-care (01) ==
LOC: HSDC 05:52
PROVIDERS: ATTEND Orthopaedic Surgery
DX: S83.241D Other tear of medial meniscus, current injury, right knee, subsequent encounter (principal); S83.281D Other tear of lateral meniscus, current injury, right knee, subsequent encounter; S72.13 Apophyseal fracture of femur; M22.41 Chondromalacia patellae, right knee; M67.51 Plica syndrome, right knee; I10 Essential (primary) hypertension; E11.9 Type 2 diabetes mellitus without complications; Z79.84 Long term (current) use of oral hypoglycemic drugs; Z85.46 Personal history of malignant neoplasm of prostate; Z96.641 Presence of right artificial hip joint
CPT/HCPCS: 01400; 29880; 94664; J2370; J2405; J3010; J7120; J7613; J2250